=== PATIENT | male | born 1990 | race American Indian/Alaskan Native ===

== ENCOUNTER 2021-05-11 05:50 | Emergency (ER) | payer SELFPAY ==
--- NOTE | 2021-05-11 06:45 | XRay Report ---
CHEST 2 VIEWS INDICATION / CLINICAL INFORMATION: CHEST PAIN. COMPARISON: None available. FINDINGS: SUPPORT DEVICES: None. HEART / MEDIASTINUM: No significant abnormality. LUNGS / PLEURA: No significant pulmonary or pleural abnormality. Minimal discoid atelectasis left estella g base. No pneumothorax. ADDITIONAL FINDINGS: No significant additional findings. IMPRESSION: 1. No active cardiopulmonary disease. Signer Name: Fransisco José II, MD Signed: 05/11/2021 6:41 AM Workstation Name: [id number]
[2021-05-11 07:06] LABS: Basophils % (Auto) 0.5 % (0.0-1.8); Eosinophils # (Auto) 0.1 K/mm3 (0.0-0.4); Eosinophils % (Auto) 0.9 % (0.0-4.3); Hematocrit 46.5 % (35.5-45.6); Hemoglobin 14.8 gm/dl (11.8-15.2); Lymphocytes # (Auto) 1.8 K/mm3 (1.2-5.4); Lymphocytes % (Auto) 24.3 % (13.4-35.0); Mean Corpuscular HGB Conc 32 % (32-34); Mean Corpuscular Volume 89 fl (84-94); Monocytes # (Auto) 0.6 K/mm3 (0.0-0.8); Monocytes % (Auto) 8.6 % (0.0-7.3); Platelet Count 291 K/mm3 (140-440); Red Blood Count 5.25 M/mm3 (3.65-5.03); Red Cell Distribution Width 14.3 % (13.2-15.2)
[2021-05-11] MEDS ORDERED: ONDANSETRON 4 MG ODT TAB PO ONE (07:08)
--- NOTE | 2021-05-11 07:08 | Emergency Department Report ---
ED Abdominal Pain HPI - General Chief Complaint: Abdominal Pain Stated Complaint: ABD AND CHEST PAIN PUI?: No Time Seen by Provider: 05/11/21 06:58 Source: patient Mode of arrival: Ambulatory Limitations: No Limitations - History of Present Illness Initial Comments: Patient is a 30-year-old male that comes to the emergency room complaining of abdominal pain that has occurred off and on for weeks. He states that it occurs mostly at night. Until this morning it was not associated with anything but today he endorses nausea. He denies any vomiting. He denies any diarrhea. He denies constipation. Patient's abdomen is round and distended: He reports that this is normal for him. The pain is worse when he lies down he said to recall the pain occurring more at night. And he endorses it radiating up into his chest. However, he denies history of GERD or reflux. MD Complaint: abdominal pain -: Gradual, week(s) Location: diffuse Radiation: none Migration to: no migration Severity: mild Quality: cramping Consistency: intermittent Associated Symptoms: denies other symptoms, nausea. denies: vomiting, diarrhea, fever, chills, constipation, dysuria, hematemesis, hematochezia, melena, hematuria, anorexia, syncope - Related Data Previous Rx's Medication Instructions Recorded Last Taken Type DOXYCYCLINE Hyclate [Vibramycin 100 mg PO Q12HR #20 capsule 05/11/21 Unknown Rx CAP] Allergies Allergy/AdvReac Type Severity Reaction Status Date / Time No Known Allergies Allergy Verified 05/11/21 06:04 ED Review of Systems ROS: Stated complaint: ABD AND CHEST PAIN Other details as noted in HPI Comment: All other systems reviewed and negative ED Past Medical Hx - Past Medical History Previous Medical History?: No - Surgical History Past Surgical History?: No - Family History Family history: no significant - Social History Smoking Status: Current Every Day Smoker Substance Use Type: Alcohol, Marijuana - Medications Home Medications: Home Medications Medication Instructions Recorded Confirmed Last Taken Type DOXYCYCLINE Hyclate [Vibramycin 100 mg PO Q12HR #20 capsule 05/11/21 Unknown Rx CAP] ED Physical Exam - General Limitations: No Limitations General appearance: alert, in no apparent distress - Head Head exam: Present: atraumatic, normocephalic - Eye Eye exam: Present: normal appearance - ENT ENT exam: Present: mucous membranes moist - Neck Neck exam: Present: normal inspection - Respiratory Respiratory exam: Present: normal lung sounds bilaterally. Absent: respiratory distress - Cardiovascular Cardiovascular Exam: Present: regular rate, normal rhythm. Absent: systolic murmur, diastolic murmur, rubs, gallop - GI/Abdominal GI/Abdominal exam: Present: soft, normal bowel sounds - Rectal Rectal exam: Present: deferred - Extremities Exam Extremities exam: Present: normal inspection - Back Exam Back exam: Present: normal inspection - Neurological Exam Neurological exam: Present: alert, oriented X3 - Psychiatric Psychiatric exam: Present: normal affect, normal mood - Skin Skin exam: Present: warm, dry, intact, normal color. Absent: rash ED Course Vital Signs 05/11/21 05:53 Temperature 98.5 F Pulse Rate 69 Respiratory 18 Rate Blood Pressure 146/80 O2 Sat by Pulse 99 Oximetry ED Medical Decision Making - Lab Data Result diagrams: 05/11/21 06:43 05/11/21 06:43 - Radiology Data Radiology results: report reviewed, image reviewed No acute process - Medical Decision Making Lab Results 05/11/21 05/11/21 05/11/21 Range/Units 06:43 06:43 Unknown WBC 7.6 (4.5-11.0) K/mm3 RBC 5.25 H (3.65-5.03) M/mm3 Hgb 14.8 (11.8-15.2) gm/dl Hct 46.5 H (35.5-45.6) % MCV 89 (84-94) fl MCH 28 (28-32) pg MCHC 32 (32-34) % RDW 14.3 (13.2-15.2) % Plt Count 291 (140-440) K/mm3 Lymph % (Auto) 24.3 (13.4-35.0) % [place] % (Auto) 8.6 H (0.0-7.3) % Eos % (Auto) 0.9 (0.0-4.3) % Baso % (Auto) 0.5 (0.0-1.8) % Lymph # (Auto) 1.8 (1.2-5.4) K/mm3 [place] # (Auto) 0.6 (0.0-0.8) K/mm3 Eos # (Auto) 0.1 (0.0-0.4) K/mm3 Baso # (Auto) 0.0 (0.0-0.1) K/mm3 Seg Neutrophils % 65.7 (40.0-70.0) % Seg Neutrophils # 5.0 (1.8-7.7) K/mm3 Sodium 142 (137-145) mmol/L Potassium 4.0 (3.6-5.0) mmol/L Chloride 102.1 (98-107) mmol/L Carbon Dioxide 29 (22-30) mmol/L Anion Gap 15 mmol/L BUN 14 (9-20) mg/dL Creatinine 0.9 (0.8-1.3) mg/dL Estimated GFR > 60 ml/min BUN/Creatinine Ratio 16 % Glucose 125 H (75-100) mg/dL Calcium 9.8 (8.4-10.2) mg/dL Total Bilirubin 0.40 (0.1-1.2) mg/dL AST 74 H (5-40) units/L ALT 37 (7-56) units/L Alkaline Phosphatase 110 (35-129) units/L Troponin T < 0.010 (0.00-0.029) ng/mL Total Protein 7.4 (6.3-8.2) g/dL Albumin 4.7 (3.9-5) g/dL Albumin/Globulin Ratio 1.7 % Lipase 37 (13-60) units/L Urine Color Yellow (Yellow) Urine Turbidity Hazy (Clear) Urine pH 9.0 H (5.0-7.0) Ur Specific [place] 1.018 (1.003-1.030) Urine Protein <15 mg/dl (Negative) mg/dL Urine Glucose (UA) Neg (Negative) mg/dL Urine Ketones Neg (Negative) mg/dL Urine Blood Neg (Negative) Urine Nitrite Neg (Negative) Urine Bilirubin Neg (Negative) Urine Urobilinogen 4.0 (<2.0) mg/dL Ur Leukocyte Esterase Sm (Negative) Urine WBC (Auto) 36.0 H (0.0-6.0) /HPF Urine RBC (Auto) < 1.0 (0.0-6.0) /HPF U Epithel Cells (Auto) < 1.0 (0-13.0) /HPF Urine Mucus Few /HPF Vital Signs 05/11/21 05:53 Temperature 98.5 F Pulse Rate 69 Respiratory 18 Rate Blood Pressure 146/80 O2 Sat by Pulse 99 Oximetry Labs noted. UA noted. UA has reflex to culture. Patient denies any urinary symptoms but given his WBC burden we will treat him with doxycycline. If his culture comes back requiring something else he will need to be contacted and the antibiotic change. When informed of this finding he still denies any urinary complaints i ncluding discharge or testicular pain. X-ray and KUB noted. Patient being discharged home with discharge plan of care including diet, activity, medications and follow-up. He verbalizes understanding of plan of care. - Differential Diagnosis GERD/pancreatitis/cholecystitis/ constipation Critical care attestation.: If time is entered above; I have spent that time in minutes in the direct care of this critically ill patient, excluding procedure time. ED Disposition Clinical Impression: UTI (urinary tract infection) Qualifiers: Urinary tract infection type: site unspecified Disposition: HOME / SELF CARE / HOMELESS Is pt being admited?: No Does the pt Need Aspirin: No Condition: Stable Instructions: Urinary Tract Infection, Adult Additional Instructions: Stay well-hydrated Motrin or Tylenol for pain avoid alcohol and cigarettes/marijuana Medication as ordered today Take this medication until it is gone Follow-up with primary care when you have completed the medications to make sure this infection is gone away. Referrals given below. [id number] Pepcid can help with your abdomenchest pain. Also ensure that you are having regular bowel movements. [id number] Metamucil can help if you get constipated. Referrals: BRENDAN CASTRO MD [Primary Care Provider] - 3-5 Days Time of Disposition: 08:16
[2021-05-11 07:16] LABS: Bilirubin,Urine NEG (Negative); Blood,Urine NEG (Negative); Color,Urine Yellow (Yellow); Mucus,Urine FEW /HPF; Protein,Urine <15 mg/dL mg/dL (Negative); RBC,Urine < 1.0 /HPF (0.0-6.0)
[2021-05-11 07:24] LABS: Alanine Aminotransferase 37 units/L (7-56); Albumin 4.7 g/dL (3.9-5); BUN/Creatinine Ratio 16; Blood Urea Nitrogen 14 mg/dL (9-20); Calcium 9.8 mg/dL (8.4-10.2); Hemolysis Index 10
--- NOTE | 2021-05-11 07:59 | XRay Report ---
ABDOMEN 1 VIEW(S) INDICATION / CLINICAL INFORMATION: abd pain. COMPARISON: None available. FINDINGS: TUBES / LINES: None. BOWEL GAS PATTERN: No significant abnormality. FREE AIR / EXTRALUMINAL GAS: None seen. ADDITIONAL FINDINGS: No significant additional findings. IMPRESSION: No significant abnormality. Signer Name: Rio Arenas Jr, MD Signed: 05/11/2021 7:55 AM Workstation Name: [id number]
[2021-05-11 08:41] VITALS: BP 130/82
--- NOTE | 2021-05-12 14:21 | Electrocardiograph Report ---
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
== END 2021-05-11 08:39 | disposition home or self-care (01) ==
LOC: ED 05:50
DX: N39.0 Urinary tract infection, site not specified (principal); F17.200 Nicotine dependence, unspecified, uncomplicated; F12.90 Cannabis use, unspecified, uncomplicated; F10.20 Alcohol dependence, uncomplicated
CPT/HCPCS: 36415; 71046; 74018; 80053; 81001; 83690; 84484; 85025; 87086; 93005; 99284; J3490; Q0162

== ENCOUNTER 2021-09-10 08:17 | Emergency (ER) | payer SELFPAY ==
[2021-09-10] MEDS ORDERED: ONDANSETRON 4 MG/2 ML INJ IV ONE (09:00)
[2021-09-10] MEDS ORDERED: MORPHINE 4 MG/1 ML INJ IV ONE (09:51)
[2021-09-10] MEDS ORDERED: SODIUM CHLORIDE 0.9% 1000 ML 1,000 ML IV ONE (09:51)
[2021-09-10 10:03] VITALS: BP 118/72
--- NOTE | 2021-09-10 10:12 | Cat Scan Report ---
CT ABDOMEN AND PELVIS WITHOUT CONTRAST INDICATION / CLINICAL INFORMATION: flank pain. TECHNIQUE: Axial CT images were obtained through the abdomen and pelvis without IV contrast. All CT scans at this location are performed using CT dose reduction for ALARA by means of automated exposure control. COMPARISON: None available. FINDINGS: LOWER CHEST: No significant abnormality. LIVER: No significant abnormality. GALLBLADDER: No significant abnormality. BILE DUCTS: No significant abnormality. PANCREAS: No significant abnormality. SPLEEN: No significant abnormality. ADRENALS: No significant abnormality. RIGHT KIDNEY / URETER: No significant abnormality. LEFT KIDNEY / URETER: No significant abnormality. STOMACH / SMALL BOWEL: No significant abnormality. COLON: No significant abnormality. APPENDIX: No significant abnormality. PERITONEUM: No free fluid. No free air. No fluid collection. LYMPH NODES: No significant adenopathy. VASCULAR STRUCTURES: No significant abnormality. URINARY BLADDER: No significant abnormality. REPRODUCTIVE ORGANS: No significant abnormality. ADDITIONAL FINDINGS: Small fat-containing umbilical hernia. SKELETAL SYSTEM: No significant abnormality. IMPRESSION: Negative for obstruction or localized inflammation. Signer Name: Nahid Evans MD Signed: 09/10/2021 10:07 AM Workstation Name: [id number]
[2021-09-10 10:26] LABS: Basophils % (Auto) 0.7 % (0.0-1.8); Eosinophils # (Auto) 0.1 K/mm3 (0.0-0.4); Eosinophils % (Auto) 1.2 % (0.0-4.3); Hematocrit 43.1 % (35.5-45.6); Hemoglobin 14.3 gm/dl (11.8-15.2); Lymphocytes # (Auto) 1.5 K/mm3 (1.2-5.4); Lymphocytes % (Auto) 31.8 % (13.4-35.0); Mean Corpuscular HGB Conc 33 % (32-34); Mean Corpuscular Volume 86 fl (84-94); Monocytes # (Auto) 0.5 K/mm3 (0.0-0.8); Monocytes % (Auto) 9.5 % (0.0-7.3); Platelet Count 253 K/mm3 (140-440); Red Blood Count 4.99 M/mm3 (3.65-5.03); Red Cell Distribution Width 14.2 % (13.2-15.2)
[2021-09-10 11:01] LABS: Mucus,Urine FEW /HPF
[2021-09-10 11:04] LABS: Color,Urine Yellow (Yellow)
[2021-09-10 11:05] LABS: Alanine Aminotransferase 81 units/L (7-56); Albumin 4.2 g/dL (3.9-5); BUN/Creatinine Ratio 11; Blood Urea Nitrogen 10 mg/dL (9-20); Calcium 9.3 mg/dL (8.4-10.2); Hemolysis Index 6
[2021-09-10 11:06] LABS: Bilirubin,Urine Small (Negative); Blood,Urine Negative (Negative)
[2021-09-10 11:08] LABS: Ictotest,Urine Negative (Negative)
--- NOTE | 2021-09-10 11:35 | Emergency Department Report ---
ED Abdominal Pain HPI - General Chief Complaint: Abdominal Pain Stated Complaint: ABDOMINAL PAIN Source: patient Mode of arrival: Ambulatory Limitations: No Limitations - History of Present Illness Initial Comments: 31-year-old male with history of UTI presents to the emergency department with abdominal pain. Patient describes sharp pain in his upper abdomen which began this morning, described as stabbing pain, radiating to his back. Symptoms associated with nausea, no vomiting or diarrhea. No fever, no dysuria. Last bowel movement was today which he describes as normal. States he had a similar episode of prior pain and was told he has urinary tract infection. He denies penile discharge, testicular pain, no hematuria, no fever or chills, no cough cold congestion, no recent travel or sick contacts. Pain appears to be a worsened with nothing and improved with nothing. MD Complaint: abdominal pain -: Gradual, Sudden, hour(s) Location: periumbilical, LUQ, RUQ, epigastric Radiation: back Severity scale (0 -10): 2 - Related Data Previous Rx's Medication Instructions Recorded Last Taken Type DOXYCYCLINE Hyclate [Vibramycin 100 mg PO Q12HR #20 capsule 05/11/21 Unknown Rx CAP] Dicyclomine [Bentyl] 20 mg PO QID PRN #12 tablet 09/10/21 Unknown Rx Omeprazole 20 mg PO QHS #30 09/10/21 Unknown Rx Allergies Allergy/AdvReac Type Severity Reaction Status Date / Time No Known Allergies Allergy Verified 05/11/21 06:04 ED Review of Systems ROS: Stated complaint: ABDOMINAL PAIN Other details as noted in HPI Constitutional: no symptoms reported. denies: chills Respiratory: denies: cough Cardiovascular: denies: chest pain, palpitations Endocrine: denies: intolerance to cold, intolerance to heat Gastrointestinal: abdominal pain, nausea. denies: vomiting, diarrhea, constipation, hematemesis Genitourinary: denies: urgency, dysuria, frequency, hematuria, testicular pain, testicular mass Musculoskeletal: back pain. denies: joint swelling, arthralgia Skin: denies: rash, lesions Neurological: denies: headache, weakness ED Past Medical Hx - Past Medical History Previous Medical History?: No - Surgical History Past Surgical History?: No - Social History Smoking Status: Current Every Day Smoker Substance Use Type: Alcohol, Marijuana - Medications Home Medications: Home Medications Medication Instructions Recorded Confirmed Last Taken Type DOXYCYCLINE Hyclate [Vibramycin 100 mg PO Q12HR #20 capsule 05/11/21 Unknown Rx CAP] Dicyclomine [Bentyl] 20 mg PO QID PRN #12 tablet 09/10/21 Unknown Rx Omeprazole 20 mg PO QHS #30 09/10/21 Unknown Rx ED Physical Exam - General Limitations: No Limitations General appearance: alert, in no apparent distress, other (Alert/uncomfortable male in no acute) - Head Head exam: Present: atraumatic - Eye Eye exam: Present: normal appearance - ENT ENT exam: Present: normal exam, normal orophraynx - Neck Neck exam: Present: normal inspection - Respiratory Respiratory exam: Present: normal lung sounds bilaterally - Cardiovascular Cardiovascular Exam: Present: regular rate, normal rhythm - GI/Abdominal GI/Abdominal exam: Present: soft, normal bowel sounds - Extremities Exam Extremities exam: Present: normal inspection, full ROM ED Course Vital Signs 09/10/21 09/10/21 08:34 10:03 Temperature 98.5 F 97.7 F Pulse Rate 85 58 L Respiratory 17 16 Rate Blood Pressure 107/70 118/72 [Left] O2 Sat by Pulse 99 99 Oximetry ED Medical Decision Making - Lab Data Result diagrams: 09/10/21 09:20 09/10/21 09:20 - Medical Decision Making 31-year-old male with history of UTI presents to the emergency department with abdominal pain. Patient describes sharp pain in his upper abdomen which began this morning, described as stabbing pain, radiating to his back. Symptoms associated with nausea, no vomiting or diarrhea. No fever, no dysuria. Last bowel movement was today which he describes as normal. States he had a similar episode of prior pain and was told he has urinary tract infection. He denies penile discharge, testicular pain, no hematuria, no fever or chills, no cough cold congestion, no recent travel or sick contacts. Pain appears to be a worsened with nothing and improved with nothing. CT negative for acute findings such as appendicitis, colitis, SBO, diverticulitis, pyelonephritis patient does have a hernia which does not appear to be incarcerated. Otherwise the have 8+ white count in his urine, without any urinary complaints. Not very definite for urinary tract infection at this time, patient has elevated liver enzymes, lipase is normal, no fever, no vomiting would culture the urine, urology referral. His vital signs remained stable, he is now much comfortable tolerating oral intake without vomiting, no fever. Will discharge home with supportive therapy, dietary management, GI referral. I discussed all of this with patient including ED findings, symptom management with understanding of everything Discussed. At the time of discharge patient is stable ambulating steadily without guarding. Passed p.o. challenge tolerating juice and crackers Critical care attestation.: If time is entered above; I have spent that time in minutes in the direct care of this critically ill patient, excluding procedure time. ED Disposition Clinical Impression: Upper abdominal pain, Elevated liver enzymes Disposition: HOME / SELF CARE / HOMELESS Is pt being admited?: No Does the pt Need Aspirin: No Condition: Stable Instructions: Abdominal Pain, Adult Prescriptions: Omeprazole 20 mg PO QHS #30 Dicyclomine [Bentyl] 20 mg PO QID PRN #12 tablet PRN Reason: cramping abdomen Referrals: PRIMARY CARE, [Primary Care Provider] - 3-5 Days [facility] [Provider Group] - 3-5 Days
== END 2021-09-10 13:25 | disposition home or self-care (01) ==
LOC: ED 08:17
DX: R10.11 Right upper quadrant pain (principal); R94.5 Abnormal results of liver function studies; F17.200 Nicotine dependence, unspecified, uncomplicated; Z79.899 Other long term (current) drug therapy
CPT/HCPCS: 36415; 74176; 80053; 81001; 83690; 85025; 96361; 96374; 96375; 99284; J2270; J2405; J7030